=== PATIENT | male | born 1990 | race Two or more races ===

== ENCOUNTER 2017-02-22 10:29 | Emergency (ER) | payer MEDICAID ==
--- NOTE | 2017-02-22 10:37 | NUR ---
PT REFUSED TO BE TRIAGED AT THIS TIME
== END 2017-02-22 10:39 | disposition left against medical advice (07) ==
LOC: ER 10:33
DX: Z53.21 Procedure and treatment not carried out due to patient leaving prior to being seen by health care provider (principal)

== ENCOUNTER 2017-05-19 15:00 | Emergency (ER) | payer MEDICAID, OTHER ==
[~2017-05-19] VITALS: Ht 177.8 cm; Wt 90.7 kg
[2017-05-19 15:00] VITALS: BP 114/80
[2017-05-19] MEDS ORDERED: ACETAMINOPHEN ES 500 MG TABLET ONE (15:58)
[2017-05-19] MEDS ORDERED: ACETAMINOPHEN 325 MG TABLET PO ONE (16:00)
== END 2017-05-19 16:03 | disposition home or self-care (01) ==
LOC: ER 15:02
DX: K08.89 Other specified disorders of teeth and supporting structures (principal); F17.200 Nicotine dependence, unspecified, uncomplicated
CPT/HCPCS: A4606; Z7610

== ENCOUNTER 2017-09-09 10:10 | Emergency (ER) | payer OTHER ==
[~2017-09-09] VITALS: Ht 177.8 cm; Wt 86.2 kg
[2017-09-09 10:15] VITALS: BP 130/84
[2017-09-09] MEDS ORDERED: KETOROLAC TROMETHAMINE INJ 30 MG/ML VIAL ONE (10:24)
[2017-09-09] MEDS ORDERED: KETOROLAC TROMETHAMINE INJ 60 MG/2 ML VIAL IM ONE (10:30)
== END 2017-09-09 10:34 | disposition home or self-care (01) ==
LOC: ER 10:12
DX: S29.012A Strain of muscle and tendon of back wall of thorax, initial encounter (principal); F12.10 Cannabis abuse, uncomplicated; X58.XXXA Exposure to other specified factors, initial encounter; Y93.89 Activity, other specified; Y92.89 Other specified places as the place of occurrence of the external cause; Y99.8 Other external cause status
CPT/HCPCS: 96372; 99283; A4606; J1885; Z7610

== ENCOUNTER 2017-11-10 12:36 | Emergency (ER) | payer OTHER ==
[~2017-11-10] VITALS: Ht 177.8 cm; Wt 81.6 kg
--- NOTE | 2017-11-10 13:20 | NUR ---
PATIENT TO ED DT RIGHT HAND AND WRIST PAIN S/P PUNCHING AND OBJECT THIS AM.
[2017-11-10] MEDS ORDERED: IBUPROFEN 600 MG TABLET PO ONE ×2 (14:30)
[2017-11-10 15:52] VITALS: BP 110/71
--- NOTE | 2017-11-10 15:52 | NUR ---
Patient discharged to home in stable condition. Written and verbal after care instructions given. Patient verbalizes understanding of instruction.
== END 2017-11-10 15:53 | disposition home or self-care (01) ==
LOC: ER 12:42
DX: S60.221A Contusion of right hand, initial encounter (principal); Z60.2 Problems related to living alone; W22.8XXA Striking against or struck by other objects, initial encounter; Y93.89 Activity, other specified; Y92.89 Other specified places as the place of occurrence of the external cause; Y99.8 Other external cause status
CPT/HCPCS: 73110; 73130-TC; A4606; Z7610

== ENCOUNTER 2018-01-03 12:38 | Emergency (ER) | payer OTHER ==
[~2018-01-03] VITALS: Ht 180.3 cm; Wt 81.6 kg
[2018-01-03 12:40] VITALS: BP 138/70
== END 2018-01-03 14:35 | disposition home or self-care (01) ==
LOC: ER 12:44
DX: S63.617A Unspecified sprain of left little finger, initial encounter (principal); S00.83XA Contusion of other part of head, initial encounter; F17.200 Nicotine dependence, unspecified, uncomplicated; Z60.2 Problems related to living alone; Y04.0XXA Assault by unarmed brawl or fight, initial encounter; Y93.89 Activity, other specified; Y92.89 Other specified places as the place of occurrence of the external cause; Y99.8 Other external cause status
CPT/HCPCS: 70450-TC; 70486-TC; A4606; Z7610

== ENCOUNTER 2018-01-16 10:14 | Emergency (ER) | payer OTHER ==
[~2018-01-16] VITALS: Ht 180.3 cm; Wt 79.8 kg
[2018-01-16 10:32] VITALS: BP 134/84
[2018-01-16] MEDS ORDERED: IBUPROFEN 400 MG TABLET PO ONE (11:00)
[2018-01-16] MEDS ORDERED: IBUPROFEN 400 MG TABLET ONE (11:01)
== END 2018-01-16 11:09 | disposition home or self-care (01) ==
LOC: ER 10:16
DX: L03.031 Cellulitis of right toe (principal); Z72.0 Tobacco use; Z87.11 Personal history of peptic ulcer disease; Z60.2 Problems related to living alone
CPT/HCPCS: 99283; A4606; Z7610